=== PATIENT | female | born 1960 | race Caucasian/White ===

== ENCOUNTER 2024-04-06 08:56 | Outpatient (RCR) | payer MEDICARE, SELFPAY ==
--- NOTE | 2024-04-06 10:10 | OPREHPOC ---
Outpatient Therapy Plan of Care This is a Multidisciplinary Plan of Care that may contain components documented by all disciplines (PT, OT, and ST.) PT Problem 1 PT Problem #1 Knowledge Deficit PT Goal 1 Goal 1. independent and compliant with HEP Target Visit 6 PT Problem 2 PT Problem #2 Pain PT Goal 1 Goal 1. no pain in the R knee Target Visit 12 PT Problem 3 PT Problem #3 Impaired Range of Motion PT Goal 1 Goal 1. 0-120 degrees active R knee mobility Target Visit 12 PT Problem 4 PT Problem #4 Impaired Strength PT Goal 1 Goal 1. 5/5 R hip strength 2. 5/5 R knee strength Target Visit 12 PT Problem 5 PT Problem #5 Impaired Functional Mobil PT Goal 1 Goal 1. LEFS to display less than 30% functional deficits 2. patient to ambulate without AD with normal gait mechanics 3. patient to ambulate up and down steps with reciprocal mechanics 4. patient to complete 6 minute walk test for 1000ft or more Target Visit 12
--- NOTE | 2024-04-06 10:10 | PTOPEVAL1 ---
Assessment and note entered by JT [employer], PT Evaluation Information Assessment Status Evaluation Diagnosis R TKA ICD-10 Condition Codes (PT) Z47.1 Other ICD-10 Condition Codes ( Z96.651 - S/P TKA, R PT) Onset 03/30/24 Subjective Information patient had R TKA on 03/30/24. she report she has been doing well since surgery. she reports she has been off the pain medication since the 3 day from surgery. she reports she has not used the walker since a few days from the surgery. she reports she has been walking the dog once a day since surgery . she reports prior to surgery she was not using a cane, but was walking a mile a day. she reports she did have pain walking. she reports she does not have a follow up with the surgeon until . Reported Pain Level Pain Score 1: Self Report Assessment PT Clinical Summary mrs. canada is a pleasant 63 yo woman who presents to skilled PT services for evaluation and treatment s/p R TKA. she presents today 1 week post op. she displays decreased rom of the R knee, R LE weakness, swelling, and deficits in normal gait mechanics. continued skilled PT is indicated to improve her objective/functional deficits and return to her prior level functional activity performance/quality of life. Plan of Care Interventions Electrical Stimulation,Gait Training,Hot Pack/Cold Pack,Intermittent Compression,Manual Therapy, Neuro Re-education,Patient/Caregiver Educati, Therapeutic Activities,Therapeutic Exercise PT Services Indicated Yes Treatment Frequency and 3x weekly for 12 visits Duration These treatments will address the objective and functional deficits as defined above. The patient will be advanced safely and appropriately in order for the patient to progress towards his/her prior level of function. Additional exercises will be introduced and as well as a comprehensive home exercise program upon discharge, if needed, ?to ensure carryover of functional gains achieved in the clinic. This treatment plan has been reviewed and agreement upon by the patient.
--- NOTE | 2024-04-20 10:47 | PCPTNOTE ---
sent surgeons office pictures and test regarding post op wound discovery today.
--- NOTE | 2024-04-27 09:07 | PCPTNOTE ---
Cancelled session. In the hospital with blood clot, waiting on tests.
--- NOTE | 2024-05-11 12:54 | PTOPPROG ---
Assessment and note entered by To [facility] Evaluation Information Assessment Status Progress Diagnosis R TKA ICD-10 Condition Codes (PT) Z47.1 Other ICD-10 Condition Codes ( Z96.651 - S/P TKA, R PT) Onset 03/30/24 Subjective Information Pt. reports that she is still having trouble in regards to ROM due to swelling. She states that the knee is still stiff into described flexion. She reports that she went a little backwards since she developed her blood clot. She states that her goal remains to increase ROM. Assessment PT Clinical Summary Pt. has attended a total of 10 treatment sessions that have been focused on strength and ROM. Pt. is improving in regards to strength and mobility, as well as gait mechanics. She continues to have limitations in ROM and strength despite her progress. Pt has 2 remaining sessions on her current POC and recommend continued skilled PT to further improve strength and mobility to help achieve her goal of optimized functional mobility. Plan of Care Interventions Gait Training,Hot Pack/Cold Pack,Manual Therapy, Neuro Re-education,Patient/Caregiver Educati, Therapeutic Activities,Therapeutic Exercise PT Services Indicated Yes Treatment Frequency and Continue with 2 remaining sessions on pt. POC Duration focusing on further advancing strength and ROM to optimize gait and functional mobility. These treatments will address the objective and functional deficits as defined above. The patient will be advanced safely and appropriately in order for the patient to progress towards his/her prior level of function. Additional exercises will be introduced and as well as a comprehensive home exercise program upon discharge, if needed, ?to ensure carryover of functional gains achieved in the clinic. This treatment plan has been reviewed and agreement upon by the patient.
== END 2024-05-20 08:54 | disposition home or self-care (01) ==
LOC: CHSPT 08:56
DX: Z47.1 Aftercare following joint replacement surgery (principal); Z96.651 Presence of right artificial knee joint
CPT/HCPCS: 97016; 97110; 97161; 97530